=== PATIENT | male | born 1985 | race Two or more races ===

== ENCOUNTER → 2025-06-29 | Outpatient (CLI) | payer MEDICAID, SELFPAY ==
--- NOTE | 2025-06-29 12:47 | XR_ITS ---
Examination: CT chest with intravenous contrast CT abdomen with intravenous contrast CT pelvis with intravenous contrast 2-D coronal and sagittal reconstructions Time of exam: June 29, 2025 1432 hours, comparison CT chest April 30, 2024 INDICATIONS: CT chest May 08, 2024 sclerotic lytic lesion left fourth rib measuring 6.6 x 1.8 cm CTDI: vol (mGy) : 21.9 DLP: (mGycm): 2027 Technique: Multiple axial images of the chest, abdomen and pelvis with intravenous contrast, 3.0 mm slice thickness. Images obtained post intravenous injection Isovue 370 60 cc. 2-D sagittal and coronal reconstructions. Low dose protocols were performed. One or more of the following dose reduction techniques were used; automated exposure control, adjustment of the mA and/or KV according to patient size, use of iterative reconstruction technique. Findings: No thoracic aortic aneurysm dilatation Pulmonary artery segments are not enlarged. No pulmonary artery filling defects No paratracheal tracheobronchial or bronchopulmonary adenopathy. Stable sclerotic deformity left fourth rib Remaining ribs intact Manubrium sternum thoracic and lumbar vertebral bodies intact with advanced disc narrowing L5-S1 Fatty infiltration throughout the liver no focal liver or splenic lesions Contracted gallbladder No pancreatic or adrenal mass Mild right hydronephrosis secondary to 6 mm proximal right ureteral calculus No bladder mass or bladder calculi IMPRESSION: Stable sclerotic deformity left fourth rib, clinical correlation advised No new rib abnormalities No mediastinal adenopathy No pneumonia or pulmonary edema or pleural disease or pulmonary nodules Mild right hydronephrosis secondary to 6 mm proximal right ureteral calculus
== END | disposition home or self-care (01) ==
PROVIDERS: PCP Student in an Organized Health Care Education/Training Program; Referring Provider Student in an Organized Health Care Education/Training Program; Visit Provider Student in an Organized Health Care Education/Training Program
DX: M95.4 Acquired deformity of chest and rib (principal); N13.30 Unspecified hydronephrosis; N13.2 Hydronephrosis with renal and ureteral calculous obstruction
CPT/HCPCS: 71260; 74177; A4649; Q9967

== ENCOUNTER 2025-07-08 13:37 | Emergency (ER) | payer MEDICAID, SELFPAY ==
[2025-07-08 13:51] VITALS: BP 163/98; PULSE 89; RESP 20; TEMP 37.2; O2SAT 99; BMI 43.4
--- NOTE | 2025-07-08 13:51 | XR_ITS ---
Examination: Retroperitoneal ultrasound, complete Technique: Multiple high resolution grayscale images of the retroperitoneum obtained, including kidneys and bladder. Exam date and time:July 08, 2025 1357 hours INDICATIONS: Bilateral flank pain years, history kidney stones on CT examination June 29, 2025 FINDINGS: Right kidney 13.3 cm cortex 1.8 cm Moderate hydronephrosis Left kidney 11.9 cm cortex 1.9 cm No renal calculi Contracted urinary bladder Prostatomegaly volume 51.0 cc no prostate nodules IMPRESSION: Bilateral renal cortical thinning Mild right hydronephrosis
--- NOTE | 2025-07-08 13:51 | PD.EDRME ---
Rapid Medical Screening Exam RME Arrival date/time: 07/08/25 13:37 39-year-old male presents to the emergency department for complaints of abdominal pain patient reports recent diagnosis of kidney stone Chief Complaint: Urogenital-Male
[2025-07-08 14:12] LABS: Collection Type, Urine Clean Catch; Squamous Epithelial Cell,Urine 0 /hpf (0-5)
[2025-07-08 14:27] LABS: Basophils # (Auto) 0.1 Thou/mm3 (0.0-0.2); Basophils % (Auto) 1 % (0-2.5); Eosinophils # (Auto) 0.0 Thou/mm3 (0.0-0.5); Eosinophils % (Auto) 0 % (0-10); Hematocrit 45.4 % (41.0-53.0); Hemoglobin 15.1 g/dL (13.5-16.0); Immature Granulocytes Auto 0.04 Thou/mm3 (0.00-0.00); Lymphocytes # (Auto) 1.6 Thou/mm3 (1.0-4.8); Lymphocytes % (Auto) 14 % (10-50); Mean Corpuscular HGB Conc 33.3 g/dl (31.0-37.0); Mean Corpuscular Hemoglobin 28.1 pg (25.0-35.0); Mean Corpuscular Volume 85 fL (80-100); Monocytes # (Auto) 0.6 Thou/mm3 (0.0-0.8); Monocytes % (Auto) 5 % (0-12); Neutrophils # (Auto) 9.7 Thou/mm3 (1.8-7.7); Neutrophils % (Auto) 80 % (37-80); Nucleated Red Blood Cell # 0.00 Thou/mm3 (0.00-0.00); Nucleated Red Blood Cell % 0 /100 WBC (0); Platelet Count 287 Thou/mm3 (140-440); RDW Standard Deviation 46.5 fL (35.1-43.9); Red Blood Count 5.37 Miln/mm3 (4.50-5.90); White Blood Count 12.1 Thou/mm3 (3.8-10.6)
[2025-07-08 14:27] LABS: Bilirubin,Urine Negative (Negative); Blood,Urine 3+ (Negative); Glucose, Urine Negative (Negative); Hyaline Casts,Urine 1 /hpf (0-1); Ketones,Urine 1+ (Negative); Leukocyte Esterase,Urine Positive (Negative); Nitrite,Urine Negative (Negative); PH,Urine 6.0 (5.0-7.0); Protein,Urine 1+ (Neg - Trace); RBC,Urine 1458 /hpf (0-3); Specific Gravity,Urine 1.025 (1.001-1.035); Urobilinogen,Urine Negative mg/dL (0.0-1.0); WBC,Urine 11 /hpf (0-5)
[2025-07-08 14:47] LABS: Alanine Aminotransferase 57 U/L (10-49); Albumin, Serum 5.1 gm/dL (3.5-5.0); Albumin/Globulin Ratio 1.9 (1.2-2.2); Alkaline Phosphatase 105 U/L (46-116); Anion Gap 12 (7-16); Aspartate Amino Transferase 54 U/L (0-34); BUN/Creatinine Ratio 10 Ratio (12-20); Bilirubin,Total 1.2 mg/dL (0.3-1.2); Blood Urea Nitrogen 12 mg/dL (9-23); Calcium 10.5 mg/dL (8.3-10.6); Calcium (Corrected) 10.5 mg/dL (8.5-10.1); Carbon Dioxide 24.3 mMol/L (20.0-31.0); Chloride 107 mMol/L (98-107); Creatinine (Component) 1.2 mg/dL (0.6-1.3); Estimated Creatinine Clearance 117.8 mL/min (>60); Globulin 2.7 gm/dL (2.3-3.5); Glucose 123 mg/dL (74-106); Lipase 33 U/L (12-53); Osmolality,Calculated 285 (275-295); Potassium 3.8 mMol/L (3.4-5.1); Sodium 143 mMol/L (136-145); Total Protein 7.8 gm/dL (5.7-8.2); eGFR > 60 See Note
[2025-07-08 14:54] LABS: Clarity,Urine Hazy (Clear/Hazy); Color,Urine Lt-Yellow (Lt Yel-Yel); Culture Indicated,Urine Yes
[2025-07-08] MEDS: ONDANSETRON ODT 4 MG TABRAP PO (15:19)
[2025-07-08] MEDS: KETOROLAC INJ 30 MG/ML VIAL IM (15:21)
--- NOTE | 2025-07-08 15:55 | PD.EDMALE ---
ED Male Genitalurinary RME/HPI General Chief complaint: Urogenital-Male Stated complaint: Kidney stone, blood in urine Time Seen by Provider: 07/08/25 15:45 Arrival date/time: 07/08/25 13:37 RME / HPI RME / HPI Narrative: 39-year-old male presents to the emergency department for complaints of abdominal pain patient reports recent diagnosis of kidney stone. Onset of symptoms for the last 2 weeks. Severity of symptoms moderate. Patient was seen by PCP yesterday and awaiting to be referred to a urologist. No fever no vomiting no other complaints noted Related Data Previous Rx's ?Medication ?Instructions ?Recorded ketorolac 10 mg tablet 10 mg PO Q8H PRN pain 5 days #20 07/08/25 tabs tamsulosin 0.4 mg capsule (Flomax) 0.4 mg PO QDAY #10 caps 07/08/25 Allergies Allergy/AdvReac Type Severity Reaction Status Date / Time Sulfa (Sulfonamide Allergy Mild Hives Verified 07/08/25 13:42 Antibiotics) Review of Systems Review of Systems Narrative Review of Systems: Review of system reviewed and within normal limits except mentioned in HPI ED Exam Narrative Physical exam: VITAL SIGNS: Reviewed. GENERAL APPEARANCE: Alert and interactive, follows commands, no acute distress, HEAD AND FACE: Non-traumatic. ENT: PERRL, pink conjunctivitis, eyelid no trauma, Mucous membrane moist. NECK: Supple, nontender, no nuchal rigidity. CHEST: No tenderness, no crepitus, no paradoxical movement, no retractions. LUNGS: Clear, well ventilated, symmetric, no rales, no wheezing, no ronchi, no stridor, good breath sounds bilaterally. HEART: Regular rate, regular rhythm, no murmur, no gallops. ABDOMEN: Soft, positive bowel sounds, nondistended, no guarding, nontender, no rebound, no masses, RECTAL: Deferred. GENITAL: Deferred. NEUROLOGICAL: Gross motor function intact sensory function intact, Appropriate for age. MUSCULOSKELETAL: low back nontender, full range of motion. EXTREMITIES: Nontender, full range of motion. SKIN: Color pink, dry, no rash, no lacerations, no abrasions, no contusions. LYMPHATICS: Deferred. Course Quality Measures none Orders Category Date Time Status US renal BI Stat Exams 07/08/25 13:51 Completed CBC Stat Lab 07/08/25 14:18 Completed Comprehensive Metabolic Panel Stat Lab 07/08/25 14:18 Completed Lipase Stat Lab 07/08/25 14:18 Completed UA, C/S IF [Urinalysis, C/S if Indicated] Stat Lab 07/08/25 14:06 Completed Urine Culture Stat Lab 07/08/25 14:06 Received Ketorolac Inj [Toradol Inj] Med 07/08/25 13:51 Discontinued 30 mg IM X1 ONE Ondansetron Odt [Zofran Odt] Med 07/08/25 13:51 Discontinued 4 mg PO X1 ONE Vital Signs Vital signs: Vital Signs Temperature 99 F 07/08/25 13:51 Pulse Rate 89 07/08/25 13:51 Respiratory Rate 20 07/08/25 13:51 Blood Pressure 163/98 H 07/08/25 13:51 Pulse Oximetry (%) 99 07/08/25 13:51 Oxygen Delivery Method Room Air 07/08/25 13:51 Urogenital - Male MDM Narrative MDM Narrative:: 39-year-old male presents to the emergency department for complaints of abdominal pain patient reports recent diagnosis of kidney stone. Onset of symptoms for the last 2 weeks. Severity of symptoms moderate. Patient was seen by PCP yesterday and awaiting to be referred to a urologist. No fever no vomiting no other complaints noted Patient's workup today all came back with significant hematuria on the urine with no sign of UTI. Ultrasound of the renal, came back unremarkable. Results discussed with the patient. Patient received Toradol IM with significant improvement of pain. Patient was advised to closely follow-up with a urologist. Patient agrees with the plan. Was also advised to drink a lot of fluids. Patient data External records reviewed:: None Clinical information provided by:: patient Social determinants that could affect healthcare access:: none Patient has the following chronic illnesses:: History of kidney stones How is presenting disease/condition affected by chronic disease/condition?: exacerbated by Evaluation data The following diagnostics were reviewed and interpreted by me:: lab results and radiology exam(s) Lab and/or radiology exams considered but not ordered:: None Interpretation Summary: See results in MDM Medications / Prescriptions Medications or Prescriptions considered but not ordered:: None Medication administrations:: Medication Administration History Discontinued Medications Ketorolac Tromethamine (Ketorolac Inj 30 Mg/Ml Vial) 30 mg IM X1 ONE Stop: 07/08/25 13:52 Last Admin: 07/08/25 15:21 Dose: 30 mg Documented By: Ondansetron HCl (Ondansetron Odt 4 Mg Tabrap) 4 mg PO X1 ONE; Protocol Stop: 07/08/25 13:52 Last Admin: 07/08/25 15:19 Dose: 4 mg Documented By: Toradol and Zofran Consultations Consultation(s) initiated? (list below): No Diagnosis Urogenital Male Differential Diagnosis: urinary tract infection and urethritis Most likely diagnosis given after review of the tests above:: Renal colic Admission Indicated Admission indicated?: not indicated Admission Request Was there a request for admission?: No Disposition Plan Disposition Plan: Discharge Discharge Attestation Discharge Attestation: The patient was given an opportunity to ask questions and understood the discharge instructions. Discharge instructions specifically effects, indications for sooner follow up or return to the emergency department, and the expected course of current diagnosis. Patient condition: Stable Discharge Plan Plan Patient Disposition: HOME (Self Care) Discharge Disposition comment: Stable Prescriptions/Referrals Prescriptions/Med Rec: New ketorolac 10 mg tablet 10 mg PO Q8H PRN (Reason: pain) 5 Days Qty: 20 0RF tamsulosin [Flomax] 0.4 mg capsule 0.4 mg PO QDAY Qty: 10 0RF Referrals: Dorinda Liz FNP [Primary Care Provider] - In 1 week Problem List Clinical Impression: Renal colic Patient/Caregiver Discharge Instructions Discharge Activity: activity as tolerated Education Materials: ED Kidney Stone w/ Colic Additional Instructions: Thank you for the opportunity for serving you today. You are stable for discharged . You are advised to: Follow-up with your PCP in 1 to 2 days Return to ED for worsening of symptoms Increase oral fluids Take medication as prescribed Follow-up with your urologist referral. Print Language: Indian Stand Alone Forms: [facility] Award Info., Patient Portal Info Letter DOMONIQUE/GINNY Supervising Physician GABRIELA Supervising Physician: MD John
== END 2025-07-08 16:20 | disposition home or self-care (01) ==
PROVIDERS: Nurse Practitioner Primary Care; Emergency Provider Family Medicine; PCP Student in an Organized Health Care Education/Training Program
DX: N23 Unspecified renal colic (principal); Z87.442 Personal history of urinary calculi
CPT/HCPCS: 36415; 76770; 80053; 81001; 83690; 85025; 87086; 96372; 99283; J1885; Q0162

== ENCOUNTER → 2025-09-06 | Outpatient (CLI) | payer MEDICAID, SELFPAY ==
--- NOTE | 2025-09-06 08:27 | XR_ITS ---
Examination: Abdomen AP single view Technique: AP portable supine abdomen, single view Exam date and time: September 06, 2025, 0906 hours INDICATIONS: Abdominal pain today.Flank pain FINDINGS: Nonobstructive bowel gas pattern. No free air The osseous arteries are intact IMPRESSION: Nonobstructive bowel gas pattern. No renal or ureteral calculi
== END | disposition home or self-care (01) ==
LOC: CDIM 08:18
PROVIDERS: PCP Student in an Organized Health Care Education/Training Program; Referring Provider Surgery; Visit Provider Surgery
DX: N20.1 Calculus of ureter (principal)
CPT/HCPCS: 74018

== ENCOUNTER → 2025-10-14 | Outpatient (CLI) | payer MEDICAID, SELFPAY ==
--- NOTE | 2025-10-14 10:27 | XR_ITS ---
Examination: Ribs, left, with PA chest, 4 views Technique: Chest PA, RIBS AP, RPO, LPO, 4 views Exam date and time: October 14, 2025, 10:50 a.m. INDICATIONS: Palpable abnormalities left ribs 1 year Findings: Normal heart size Lungs are clear. 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
== END | disposition home or self-care (01) ==
LOC: CDIM 10:09
PROVIDERS: PCP Student in an Organized Health Care Education/Training Program; Referring Provider Student in an Organized Health Care Education/Training Program; Visit Provider Student in an Organized Health Care Education/Training Program
DX: M95.4 Acquired deformity of chest and rib (principal)
CPT/HCPCS: 71101